=== PATIENT | male | born 1985 | race Caucasian/White ===

== ENCOUNTER 2018-07-10 23:03 | Emergency (ER) | payer SELFPAY ==
[~2018-07-10] VITALS: Ht 177.8 cm; Wt 74.8 kg
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
== END 2018-07-11 02:30 | disposition home or self-care (01) ==
LOC: FSED 23:03
DX: S00.83XA Contusion of other part of head, initial encounter (principal); R07.89 Other chest pain; R10.13 Epigastric pain; H92.01 Otalgia, right ear; Y04.8XXA Assault by other bodily force, initial encounter; Y92.488 Other paved roadways as the place of occurrence of the external cause; I10 Essential (primary) hypertension; K21.9 Gastro-esophageal reflux disease without esophagitis; F17.210 Nicotine dependence, cigarettes, uncomplicated
CPT/HCPCS: 36415; 70450; 70486; 71260; 72125; 74177; 80053; 80307; 80320; 81003; 82553; 84484; 85025; 99283

== ENCOUNTER 2020-12-26 20:21 | Emergency (ER) | payer SELFPAY ==
[~2020-12-26] VITALS: Ht 177.8 cm; Wt 69.9 kg
[2020-12-26] MEDS ORDERED: ONDANSETRON HCL INJ 2MG/ML 2ML 2 MG/ML VIAL IV STA (20:43)
[2020-12-26] MEDS ORDERED: MORPHINE SULFATE INJ 4 MG/ML INJ 1ML IV ONE (21:00)
[2020-12-26] MEDS ORDERED: ONDANSETRON HCL INJ 2MG/ML 2ML 2 MG/ML VIAL ONE (21:24)
[2020-12-26] MEDS ORDERED: MORPHINE SULFATE INJ 4 MG/ML INJ 1ML ONE (21:25)
[2020-12-26 22:50] VITALS: BP 112/66
== END 2020-12-26 22:50 | disposition home or self-care (01) ==
LOC: FSED 20:45
DX: R51.9 Headache, unspecified (principal); R19.7 Diarrhea, unspecified; R11.2 Nausea with vomiting, unspecified; I10 Essential (primary) hypertension; K21.9 Gastro-esophageal reflux disease without esophagitis; F17.210 Nicotine dependence, cigarettes, uncomplicated
CPT/HCPCS: 70450; 80053; 85025; 99284; J2270; J2405

== ENCOUNTER 2025-01-29 13:22 | Emergency (ER) | payer SELFPAY ==
[~2025-01-29] VITALS: Ht 175.3 cm; Wt 72.7 kg
[2025-01-29] MEDS: METOCLOPRAMIDE HCL 10 MG/2ML VIAL IV ONE (14:09)
[2025-01-29] MEDS: SODIUM CHLORIDE 0.9% 1000ML 1,000 ML IV ONE (14:09)
[2025-01-29] MEDS: KETOROLAC TROMETHAMINE 30 MG/ML VIAL IV STA (14:09)
[2025-01-29] MEDS ORDERED: REGLAN10 MG PO (16:38)
[2025-01-29] MEDS ORDERED: TRIAMCINOLONE A15 G1 TOP (16:58)
[2025-01-29 16:59] VITALS: PULSE 46; RESP 16; TEMP 98.3; O2SAT 99
== END 2025-01-29 16:59 | disposition home or self-care (01) ==
LOC: FSED 13:27
DX: R05.9 Cough, unspecified (principal); B34.9 Viral infection, unspecified; R51.9 Headache, unspecified; I10 Essential (primary) hypertension; K21.9 Gastro-esophageal reflux disease without esophagitis
CPT/HCPCS: 80053; 85025; 96374; 96375; 99284; J1885; J2765; J7030